=== PATIENT | female | born 1940 | race Caucasian/White ===

== ENCOUNTER 2018-02-14 11:27 | Day surgery (SDC) | payer MEDICARE, SELFPAY ==
--- NOTE | 2018-02-14 | IMM_PTH ---
PATIENT: YESENIA RICHMOND LOC: [facility] – [place] U#:[id number] AGE/SX: 77/F ROOM: RE02/14/[address]: Dr. Benito Carrillo MD : 1940 BED: DIS: 02/14/2018 SPEC #: [id number] RECD: 02/17/18 13:23 STATUS: YVAN REQ #: [id number] GOPI: 02/14/18 00:[address]: Benito Carrillo DEPT: IMMUNOHISTOCHEMISTRY RECD BY: Italia Shaver ENTERED: 02/17/18 13:24 SP TYPE: IMMUNO OTHR DR: Dr. Minerva Moore MD Tissues: B - Skin of external ear, NOS Procedures: CK5-6 (initial) CK14 (add) Vimentin (add) Pankeratin (add) P40 (add) S-100 (add) PHYSICIAN & INSTITUTION [place] [id number] SPECIMEN INFORMATION: Tissue Source: B - Additional tissue, right ear lesion, biopsy Clinical Info: Right external ear lesion, history of squamous cell carcinoma Specimen Number: [id number] CPT code: 75270, 87245 x5 METHODOLOGY: Deparaffinized sections of prefer/formalin-fixed tissue or PAP/DQ stained slides are incubated with monoclonal/polyclonal antibodies/oligonucleotide probes. Localization is made via biotin free immunoperoxidase method. Appropriate controls are performed and reacted as expected. Results on target cell population are indicated in the following table: RESULTS: ANTIBODY / CLONE RESULT Block B P40 (BC28) positive CK5-6 (D5 & 1684) positive CK14 (LL002) positive Vimentin (V9) negative S-100 (4C4.9) negative AE1-3 (AE1/AE3/PCK26) positive These tests were developed and their performance characteristics determined by [facility]. They may not have been cleared or approved by the U.S. Food and Drug Administration. The FDA has determined that such clearance or approval is not necessary. INTERPRETATION: B. Additional tissue, right ear lesion, biopsy: Fragments of invasive squamous cell carcinoma. AM:maritza 02/18/18
--- NOTE | 2018-02-14 | LES_PTH ---
PATIENT: YESENIA RICHMOND LOC: [facility] [place] U#:[id number] AGE/SX: 77/F ROOM: RE02/14/[address]: Dr. Benito Carrillo MD : 1940 BED: DIS: 02/14/2018 SPEC #: [id number] RECD: 02/14/18 13:34 STATUS: YVAN REAmilcar #: [id number] GOPI: 02/14/18 00:[address]: Benito Carrillo DEPT: SURGICAL PATHOLOGY RECD BY: Italia Shaver ENTERED: 02/14/18 14:01 SP TYPE: Lesion OTHR DR: Dr. Minerva Moore MD Tissues: Skin of external ear, NOS Procedures: Frozen Section (charge) Surgery Specimen Level IV Frozen (no charge) HEADER OPERATION: Excision of nonhealing wound of right external ear PRE-OP DIAGNOSIS: Lesion of right external ear, history of squamous cell carcinoma TISSUE SUBMITTED: A - Nonhealing wound of right external ear, B - Additional tissue nonhealing wound of right external ear FROZEN SECTION DIAGNOSIS A. Right ear lesion, biopsy: Detached fragments of atypical squamous epithelium. Focal granulation tissue. AM:maritza 02/14/18 MICROSCOPIC DIAGNOSIS A. Lesion of right external ear, biopsy: Detached fragments of atypical squamous epithelium. B. Additional tissue, nonhealing wound, right external ear, biopsy: Fragments of invasive squamous cell carcinoma. See Comment. AM:maritza 02/17/18 COMMENT B. Immunohistochemistry ([id number]) supports the above diagnosis. Invasive carcinoma is present in with associated desmoplasia and at cauterized edges of the tissue. Clinical correlation is suggested. Case has been reviewed in consultation with Dr. Salazar who concurs with the above diagnosis. IDC:SJ MICROSCOPIC DESCRIPTION Slides are reviewed. GROSS DESCRIPTION A - Received fresh for frozen section consultation/diagnosis labeled with the patient's name is a specimen designated right external ear lesion. The specimen consists of two fragments of sage-red soft tissue that in aggregate measure 0.5 x 0.2 x 0.1 cm. The entire specimen is submitted for frozen section diagnosis in one cassette. / AM:maritza 02/14/18 B - Received in fixative is one container labeled with the patient's name and designated additional tissue nonhealing wound of right external ear. The specimen consists of an irregular piece of sage soft tissue measuring 0.7 x 0.5 x 0.2 cm. The specimen bisected and submitted entirely in one cassette. / SJ:maritza 02/14/18 TC:0 CPT: 66632 x2, 20495
--- NOTE | 2018-02-14 11:43 | EKG12_ITS ---
Test Reason : PREOP Blood Pressure : / mmHG Vent. Rate : 076 BPM Atrial Rate : 076 BPM P-R Int : 142 ms QRS Dur : 084 ms QT Int : 390 ms P-R-T Axes : 037 -19 017 degrees QTc Int : 438 ms Normal sinus rhythm Normal ECG Confirmed by REGINALD PARTIDA, VANESSA ([id number]), editor magazine [employer] ([id number]) on 02/20/2018 3:25:35 PM Referred By: Benito Carrillo Confirmed By:VANESSA MONTELONGO MD
[2018-02-14 12:07] VITALS: BP 142/77; PULSE 81; RESP 16; TEMP 37.1; O2SAT 96; BMI 25.0
[2018-02-14 12:17] LABS: Anion Gap 8 (5-15); BUN 8 mg/dL (7-18); BUN/Creat Ratio 10.8 RATIO (10-20); Chloride 105 mmol/L (98-107); Creatinine, Serum 0.74 mg/dL (0.55-1.02); EST Glomerular Filtration Rate 81 mL/min (>60); Est Glom Filt Rate - Afr Amer 98 mL/min (>60); Estimated Creatinine Clearance 43.07 ml/min; Glucose 105 mg/dL (74-106); Potassium 3.7 mmol/L (3.5-5.1); Sodium Level 141 mmol/L (136-145)
[2018-02-14] MEDS: Bacitracin 500 UNITS/GM PACKET (14:02)
--- NOTE | 2018-02-14 14:02 | PCM.OPRPT ---
Problem List (1) Lesion of ear canal Status: Acute (2) History of malignant neoplasm of skin Status: Chronic Report of Operation Date of Procedure: 02/14/18 Pre-Operative Diagnosis: Non-healing lesion of right ear with history of previously excised squamous cell carconoma in this area Post-Operative Diagnosis: Same Surgery/Procedure Performed:: Excision of non-healing lesion of right ear 0.8 x 1 cm with advancement flap closure Type of Anesthesia:: General Anesthesiologist: Zac Mojica Special Medications: none Specimen's removed: lesion right ear Drains: none Estimated Blood Loss (mL): 0 mL Fluids Replaced: 800 mL Grafts/Implants Used: none - Complications none - Admit VTE Documentation VTE Present on Admission: No VTE Mechan Device Prophylaxis: SCD's VTE Pharm Prophylaxis ordered?: No
--- NOTE | 2018-02-14 14:07 | DCINST_ITS ---
- Discharge Diagnoses Current Active Problems: Current Active and Chronic Problems Lesion of ear canal (Acute) History of malignant neoplasm of skin (Chronic) You will use the following diet at home:: Regular Discharge Activity: Return to Normal Activity Call your doctor if your incision/area has: Continuous Slow Oozing, Foul Smelling Discharge, Swelling at the incision site Call your doctor if you observe: Fever of 101 or Higher, Uncontrolled pain Cleanse incision/area with: Do not get Incision Wet Allergies/Adverse Reactions: Allergies No Known Allergies Allergy (Verified 02/11/18 09:56) Medications to take at Discharge Acetaminophen [Tylenol Extra Strength] 500 - 1,000 mg PO Q6H PRN PRN 02/11/18 Atorvastatin Calcium [Lipitor] 40 mg PO QHS 02/11/18 Gabapentin [Neurontin] 300 mg PO DAILY 02/11/18 Gabapentin [Neurontin] 600 mg PO QHS 02/11/18 Nabumetone [Relafen] 750 mg PO BID 02/11/18 RX: Baclofen 10 - 20 mg PO QHS 02/11/18 RX: Metformin HCl 500 mg PO BID 02/11/18 RX: Omeprazole 40 mg PO BID 02/11/18 Primary Care Physician: Minerva Moore [Primary Care Provider] - Test Results: Test results from this visit will be discussed in further detail at your follow- up appointment, if applicable. Please Follow Up With: Benito Carrillo MD When: 1 week
[2018-02-14 14:10] VITALS: BP 142/77; BP 162/77; PULSE 89; RESP 16; TEMP 36.3; O2SAT 95
[2018-02-14 14:15] VITALS: BP 142/77; BP 158/65; PULSE 78; RESP 16; O2SAT 94
[2018-02-14 14:20] VITALS: BP 142/77; BP 148/71; PULSE 75; RESP 16; O2SAT 95
[2018-02-14 14:30] VITALS: BP 142/77; BP 149/72; PULSE 79; RESP 16; O2SAT 96
[2018-02-14 15:44] VITALS: BP 142/77
--- OUTSIDE RECORDS SUMMARY | 2018-04-11 10:17 | XMS RPT_ITS | Summary of Care ---
:1940 Author Organization [facility] Address [address] [place] [address] Care Team Providers Name Role Phone Loy Paez DO Primary Care Provider Loy Paez DO Unavailable Encounter Details Date Type Department Care Team Description 08/17/2017 Hospital Encounter [facility], [place], [place] [address] [address] [place] [address] Allergies No Known Allergiesas of this encounter Medications Prescription Sig. Disp. Refills Start Date End Date Status atorvastatin (LIPITOR) 40 Take 40 mg by mouth 01/10/2017 Active MG tablet daily. baclofen (LIORESAL) 10 MG Take 10 mg by mouth 01/10/2017 Active tablet every evening. gabapentin (NEURONTIN) Take 300 mg by 01/10/2017 Active 300 MG capsule mouth 2 (two) times a day. ibuprofen (ADVIL,MOTRIN) Take 200 mg by Active 200 MG tablet mouth every 6 (six) hours as needed. metFORMIN (GLUCOPHAGE) Take 500 mg by 01/02/2017 Active 500 MG tablet mouth 2 (two) times a day With morning and evening meals . nabumetone (RELAFEN) 750 Take 750 mg by 02/20/2017 Active MG tablet mouth 2 (two) times a day. omeprazole (PRILOSEC) 40 Take 40 mg by mouth 01/10/2017 Active MG capsule daily Before a meal . acetaminophen (TYLENOL Take by mouth 2 Active EXTRA STRENGTH) 500 MG tablets every 4-6 tablet hours as needed, not to exceed 8 tablets per 24 hours . 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 Hormone replacement therapy 02/20/2016 Type 2 diabetes mellitus without complication, without long-term current 02/20/2016 use of insulin (HCC) Insomnia 02/20/2016 HUSSAIN (Generalized Anxiety Disorder) 02/20/2016 Primary osteoarthritis involving multiple joints 02/20/2016 Mixed hyperlipidemia 02/20/2016 Immunizations Name Dates Previously Given Next Due Influenza TIV (IM) 01/21/2017 as of this encounter Social History Tobacco Use Types Packs/Day Years Used Date Never Smoker Alcohol Use Drinks/Week oz/Week Comments No Sex Assigned at Date Recorded Not on file as of this encounter Plan of Treatment Upcoming Encounters Date Type Specialty Care Team Description 02/03/2018 Office Visit Dentistry Health Maintenance Due Date Last Done Comments COLONOSCOPY 1940 DEXA SCAN 1940 TETANUS EVERY 10 YR 1940 FOOT EXAM 08/19/1951 OPHTHALMOLOGY EXAM 08/19/1951 ZOSTER VACCINE 2001 PNEUMOCOCCAL VACCINE AGE 65+ (1 of 2 2006 - PCV13) HEMOGLOBIN A1C 07/02/2017 01/01/2017, 11/17/2015, 04/18/2013 URINE MICROALBUMIN 01/01/2018 01/01/2017 SEQUENTIAL INFLUENZA VACCINE Completed 01/21/2017 as of this encounter
--- OUTSIDE RECORDS SUMMARY | 2018-04-11 10:17 | XMS RPT_ITS ---
:1940 Author Organization [facility] Care Team Providers Name Role Phone Queta, Dr. Rafael Fairbanks Admitting Unavailable [place], Dr. Rafael Fairbanks Attending Unavailable [place], Dr. Rafael Fairbanks Admitting Unavailable [place], Dr. Rafael Fairbanks Attending Unavailable Mario, Dr. Jose Will Admitting Unavailable Mario, Dr. Jose Will Attending Unavailable Radha Carolina Admitting Unavailable Radha Carolina Attending Unavailable CarrilloBenito Attending Unavailable Carrillo, Benito Referring Unavailable YOVANANGKENYON, SHELLYJETH Primary Care Unavailable Benito Carrillo Attending Unavailable Carrillo, Benito Referring Unavailable KATELYNN, VIDARA Primary Care Unavailable Pete Montelongo Attending Unavailable Benito Carrillo Referring Unavailable PROBLEMS PROBLEMS DATE TYPE CONDITION / CODE ATTENDING STATUS SOURCE 02/28/2018 Unknown Z01.810 - Encounter Pete Montelongo Active [place] for preprocedural [facility] examination / Repository Z01.810(ICD-10) PROCEDURES PROCEDURES No Procedure Records FoundRESULTS RESULTS BEDSIDE GLUCOSE Collected: 02/21/2018 Status: F Source[facility] [place] [facility] TYPE CODE TESTS RESULT OUT OF REFERENCE UNITS RANGE LAB L501.080 70-110 mg/dL High BEDSIDE GLU 148 Result Comment: MANAGEMENT OF PATIENT CARE PER NURSING PROTOCOL Performed By: #### L501.080 #### [facility] Point of Care [address] [place] [address] OPERATIVE REPORT Observed: 02/21/2018 Status: F Source: [place] 12:35 PM [facility] REPOSITORY [facility] Medical Records Department [address] [place] [address] Operative Report 02/21/18 1226 MR#: [id number] Acct: [id number] Name: YESENIA RICHMOND Rep #: [id number] : 1940 77 From: Benito Carrillo MD PCP: IMNERVA MOORE Status: REG 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 This had felt to be benign on frozen section intraoperatively however on her final pathology after immunohistochemical staining was shown to be a squamous cell carcinoma and return to surgery for wide excision was advised. The risks, alternatives, potential benefits, and complications were discussed at length and any questions answered to the patient and/or caregiver's satisfaction. Witnessed informed consent was obtained in the office, and the patient and/or caregiver was agreeable to proceed. Procedure went as follows: The patient was identified in the preoperative holding brought to the operating room where she was placed under general anesthesia. Difficulty in visualizing the airway was encountered and during instrumentation a small puncture wound of the right upper lip had been created due to catching the upper lip on the canine tooth on that side. This was cleaned and hemostasis achieved with firm pressure. Given the location within the vermilion this wound was then closed with an interrupted 4-0 chromic suture for closure with the intraoral portion left open to allow for drainage. The patient was given a gram of Ancef for prophylaxis against infection. Attention was then turned to the right ear where a 2 x 2 centimeter circumferential marking was made including the area of previous resection of her recurrent squamous cell carcinoma. This included the insertion of the helical rim the apex of the pinna and the skin of the taoist in this area. This was then incised with a 15 blade scalpel through the skin and subcutaneous tissue and dissection was continued down to the fascia of the temporalis muscle. This was then widely resected including the cartilaginous portions of the pinna and was sent for pathologic evaluation. A 4 cm descending incision was then made into the tragus and wide undermining was carried out to allow for rotation and advancement of the facial skin to fill the defect created by the resection. This was then secured deeply with interrupted 3-0 Vicryl sutures. A portion of the cartilage of the auricle was then excised to allow for recreation of the helical rim which was then rotated and inserted into the incision line of the reconstruction which resulted in a smaller overall external ear but recreation of the natural curvature of the superior portion. A small dogear at the inferior portion of the tragus where the facial skin was advanced was additionally excised trephine the incisional line and after finishing closure with the deep Vicryl sutures 5-0 Monocryl suture was then placed to close the skin edge. Bacitracin ointment was then applied and the patient returned to anesthesia where she was revived and extubated without complication having tolerated the procedure well. Type of Anesthesia:: General Anesthesiologist: Benito Araujo Special Medications: Ancef 1 gm Specimen's removed: SCCA right ear Drains: none Estimated Blood Loss (mL): 10 mL Fluids Replaced: 1000 mL Grafts/Implants Used: none - Complications injury to left upper lip during intubation - Admit VTE Documentation VTE Present on Admission: No VTE Mechan Device Prophylaxis: SCD's VTE Pharm Prophylaxis ordered?: No 02/21/18 1235 <Electronically signed by Benito Carrillo MD> Date Benito Carrillo MD CC: Benito Carrillo MD; MINERVA MOORE Signed BEDSIDE GLUCOSE Collected: 02/21/2018 Status: F Source: [place] 10:00 AM [facility] REPOSITORY TYPE CODE TESTS RESULT OUT OF RANGE REFERENCE UNITS LAB L501.080 70-110 mg/dL Normal BEDSIDE GLU 108 Result Comment: MANAGEMENT OF PATIENT CARE PER NURSING PROTOCOL Performed By: #### L501.080 #### [facility] Point of Care [address] [place] [address] LESION (CHOOSE SITE) Observed: 02/21/2018 Status: F Source: [place] 12:00 AM [facility] REPOSITORY Patient: YESENIA RICHMOND : 1940 (77/F) Acct Num: [id number] Phys: Benito Carrillo MD Unit Num: [id number] Loc: [facility] Specimen: [id number] Received: 02/21/181331 Spec Type: Lesion TISSUES 1 TISSUES: Skin of external ear, NOS COMMENT The focus of basal cell carcinoma measures 0.5 x 0.1 cm. (measured microscopically). Smaller piece of tissue is negative for carcinoma. Both pieces of tissue show cartilage. Cartilage is not involved by the tumor. Clinical correlation and appropriate follow up are necessary. Please make reference to previous specimen ([id number]) lesion of right external ear, biopsy with diagnosis of detached fragments of atypical squamous epithelium and additional tissue, nonhealing wound, right external ear, biopsy with diagnosis of fragments of invasive squamous cell carcinoma. Case has been reviewed in consultation with Dr. Oneill who concurs with the above diagnosis. IDC:AM GROSS DESCRIPTION Received is one container labeled with the patient's name and not further designated. The specimen consists of two fragments. The larger fragment contains skin, cartilage and soft tissue. This fragment is somewhat discoid measuring 2.4 x 2.3 cm and a depth of excision measuring 0.8 cm in greatest thickness. The specimen is differentially inked as follows: anterior - black, posterior - blue, superior - red and inferior - green. This piece is serially sectioned. Also present in the container is an irregular fragment of pink-red tissue resembling possibly cartilage measuring 2.5 cm in length and 0.2 cm in average diameter. This fragment is inked in green ink and bisected. The entire specimen is submitted in two cassettes. / AM:maritza 02/21/18 TC:0 CPT: 32051 HEADER OPERATION: Excision, squamous cell carcinoma, ear PRE-OP DIAGNOSIS: Squamous cell carcinoma of skin TISSUE SUBMITTED: Right ear excision, recurrent squamous cell carcinoma right pinna, long suture - anterior, short suture - superior MICROSCOPIC DESCRIPTION Slides are reviewed. MICROSCOPIC DIAGNOSIS Right ear lesion, excisional biopsy: Focal area of ulceration consistent with previous biopsy site. Negative for squamous cell carcinoma. Focal basal cell carcinoma extending up to the inferior margin of the specimen. See comment. SJ:maritza 02/24/18 Signed Darrell Salazar 02/24/18 <signature on file> Performed By: #### PLES #### [facility] [address] [place], [address] 12 LEAD ELECTROCARDIOGRAM Observed: 02/20/2018 Status: F Source: [place] 3:25 PM [facility] REPOSITORY [facility] Cardiovascular Services [address] [place] [address] 12 Lead EKG 02/14/18 1150 MR#: [id number] Acct: [id number] Name: YESENIA RICHMOND Rep #: [id number] : 1940 77 From: Pete Montelongo MD Attending Dr: Benito Carrillo MD Status: [facility] Ordering Dr: Benito Carrillo MD Date: 02/14/18 Location: [facility] Sex: F C Admitted: Test Reason : PREOP Blood Pressure : / mmHG Vent. Rate : 076 BPM Atrial Rate : 076 BPM P-R Int : 142 ms QRS Dur : 084 ms QT Int : 390 ms P-R-T Axes : 037 -19 017 degrees QTc Int : 438 ms Normal sinus rhythm Normal ECG Confirmed by REGINALD PARTIDA, PETE ([id number]), fashion editor GT SAN ([id number]) on 02/20/2018 3:25:35 PM Referred By: Benito Carrillo Confirmed By:PETE MONTELONGO MD 02/20/18 1525 Date Pete Montelongo MD CC: Benito Carrillo MD; MINERVA MOORE Signed OPERATIVE REPORT Observed: 02/14/2018 Status: F Source: [place] 2:11 PM [facility] REPOSITORY [facility] Medical Records Department [address] [place] [address] Operative Report 02/14/18 1402 MR#: [id number] Acct: [id number] Name: YESENIA RICHMOND Rep #: [id number] : 1940 77 From: Benito Carrillo MD PCP: MINERVA MOORE Status: REG [facility] Y Location: [place] [address] ADDENDUM by Benito Carrillo MD on 02/14/18 at 1411 Code Visit Yesenia is a 77-year-old female with a history of squamous cell carcinoma of the right ear. This is been treated with resection and skin graft and had been without obvious recurrence for several years but developed a nonhealing wound along the superior margin of the skin graft. Observation showed progression and swelling over the helical rim and concern for recurrence of her squamous cell carcinoma was raised with excision for evaluation and wound closure advised. The risks, alternatives, potential benefits, and complications were discussed at length and any questions answered to the patient and/or caregiver's satisfaction. Witnessed informed consent was obtained in the office, and the patient and/or caregiver was agreeable to proceed. Procedure went as follows: The patient was identified in the preoperative holding and brought to the operating room where she was placed under monitored anesthesia care. When appropriate anesthesia is obtained, the right ear was prepped and draped in usual sterile fashion. Using 1% lidocaine with 100,000 epinephrine a total of 2 cc were then injected around the helical rim and the visible lesion in the scaphoid. Examination showed interval resolution of the fullness at the helical rim but a nonhealing ulceration with a base of granulation tissue underneath scabbing at the superior aspect of the skin graft. This was then resected with a 15 blade scalpel and the granulation tissue was scraped from the underlying cartilage and sent for pathologic evaluation. This showed atypical squamous epithelium and granulation tissue without calixto carcinoma. Given this the area was then broadly excised for a total of 0.8 x 1.0 cm in size removing the underlying cartilage. A relaxing incision was then made over the skin of the tragus 1 cm in length and this was then rotated into fill the defect which was secured with a single interrupted 3-0 Vicryl suture. 4-0 Prolene sutures were then placed to close the skin edge and bacitracin ointment applied. The patient was then returned to anesthesia she was revived without complication having tolerated the procedure well. 02/14/18 1411 <Electronically signed by Benito Carrillo MD> Date Benito Carrillo MD cc: Benito Carrillo MD; MINERVA MOORE * Signed Problem List (1) Lesion of ear canal Status: Acute (2) History of malignant neoplasm of skin Status: Chronic Report of Operation Date of Procedure: 02/14/18 Pre-Operative Diagnosis: Non-healing lesion of right ear with history of previously excised squamous cell carconoma in this area Post-Operative Diagnosis: Same Surgery/Procedure Performed:: Excision of non-healing lesion of right ear 0.8 x 1 cm with advancement flap closure Type of Anesthesia:: General Anesthesiologist: Zac Mojica Special Medications: none Specimen's removed: lesion right ear Drains: none Estimated Blood Loss (mL): 0 mL Fluids Replaced: 800 mL Grafts/Implants Used: none - Complications none - Admit VTE Documentation VTE Present on Admission: No VTE Mechan Device Prophylaxis: SCD's VTE Pharm Prophylaxis ordered?: No 02/14/18 1406 <Electronically signed by Benito Carrillo MD> Date Benito Carrillo MD CC: Benito Carrillo MD; MINERVA MOORE Signed DISCHARGE INSTRUCTION Observed: 02/14/2018 Status: F Source: [place] 2:07 PM [facility] REPOSITORY [facility] Medical Records Department [address] [place] [address] Instructions for Home/Discharge Instructions 02/14/18 1406 MR#: [id number] Acct: [id number] Name: YESENIA RICHMOND Rep #: [id number] : 1940 77 From: Benito Carrillo MD PCP: MINERVA MOORE Status: REG SD - Discharge Diagnoses Current Active Problems: Current Active and Chronic Problems Lesion of ear canal (Acute) History of malignant neoplasm of skin (Chronic) You will use the following diet at home:: Regular Discharge Activity: Return to Normal Activity Call your doctor if your incision/area has: Continuous Slow Oozing, Foul Smelling Discharge, Swelling at the incision site Call your doctor if you observe: Fever of 101 or Higher, Uncontrolled pain Cleanse incision/area with: Do not get Incision Wet Allergies/Adverse Reactions: Allergies No Known Allergies Allergy (Verified 02/11/18 09:56) Medications to take at Discharge Acetaminophen [Tylenol Extra Strength] 500 - 1,000 mg PO Q6H PRN PRN 02/11/18 Atorvastatin Calcium [Lipitor] 40 mg PO QHS 02/11/18 Gabapentin [Neurontin] 300 mg PO DAILY 02/11/18 Gabapentin [Neurontin] 600 mg PO QHS 02/11/18 Nabumetone [Relafen] 750 mg PO BID 02/11/18 RX: Baclofen 10 - 20 mg PO QHS 02/11/18 RX: Metformin HCl 500 mg PO BID 02/11/18 RX: Omeprazole 40 mg PO BID 02/11/18 Primary Care Physician: Minerva Moore [Primary Care Provider] - Test Results: Test results from this visit will be discussed in further detail at your follow-up appointment, if applicable. Please Follow Up With: Benito Carrillo MD When: 1 week 02/14/18 1407 <Electronically signed by Benito Carrillo MD> Date Benito Carrillo MD CC: MINERVA MOORE BASIC METABOLIC Collected: 02/14/2018 Status: F Source: [place] PROFILE (BMP) 11:55 AM [facility] REPOSITORY TYPE CODE TESTS RESULT OUT OF RANGE REFERENCE UNITS LAB L501.0100 74-106 mg/dL Normal GLU 105 Result Comment: Fasting Glucose result from 100 to 125 mg/dL suggests IMPAIRED HOMEOSTASIS per A.D.A. criteria. Please note revised GLUCOSE reference range effective 2017. LAB L501.1000 7-18 mg/dL Normal BUN 8 LAB L501.1100 0.55-1.02 mg/dL Normal CREAT,SERUM 0.74 Result Comment: The validity of the calculated GFR AND GFRAA in patients over 70 years has not been determined. Clinical correlation is essential. LAB L501.1110 >60 mL/min Normal EST GFR 81 Result Comment: Non- GFR Calc LAB L501.1115 >60 mL/min Normal EST GFR - AA 98 Result Comment: GFR Calc LAB L501.1255 ml/min Normal Estimated CRCL 43.07 LAB L501.1300 10-20 RATIO Normal BUN/CRE 10.8 LAB L501.2200 8.5-10 mg/dL Normal .1 CA 9.0 LAB L501.5300 136-14 mmol/L Normal 5 NA 141 LAB L501.5600 3.5-5. mmol/L Normal 1 K 3.7 LAB L501.5900 98-107 mmol/L Normal CL 105 LAB L501.6100 21.0-3 mmol/L Normal 2.0 CO2 28.0 LAB L501.6200 5-15 Normal GAP 8 Performed By: #### L500.2500 #### [facility] [address] [place], [address] LESION (CHOOSE SITE) Observed: 02/14/2018 Status: F Source: [place] 12:00 AM [facility] REPOSITORY Patient: YESENIA RICHMOND : 1940 (77/F) Acct Num: [id number] Phys: Benito Carrillo MD Unit Num: [id number] Loc: [facility] Specimen: [id number] Received: 02/14/181333 Spec Type: Lesion TISSUES 1 TISSUES: Skin of external ear, NOS COMMENT B. Immunohistochemistry ([id number]) supports the above diagnosis. Invasive carcinoma is present in with associated desmoplasia and at cauterized edges of the tissue. Clinical correlation is suggested. Case has been reviewed in consultation with Dr. Salazar who concurs with the above diagnosis. IDC:BRANDIE FROZEN SECTION DIAGNOSIS A. Right ear lesion, biopsy: Detached fragments of atypical squamous epithelium. Focal granulation tissue. AM: 02/14/18 GROSS DESCRIPTION A - Received fresh for frozen section consultation/diagnosis labeled with the patient's name is a specimen designated right external ear lesion. The specimen consists of two fragments of sage-red soft tissue that in aggregate measure 0.5 x 0.2 x 0.1 cm. The entire specimen is submitted for frozen section diagnosis in one cassette. / AM: 02/14/18 B - Received in fixative is one container labeled with the patient's name and designated additional tissue nonhealing wound of right external ear. The specimen consists of an irregular piece of sage soft tissue measuring 0.7 x 0.5 x 0.2 cm. The specimen bisected and submitted entirely in one cassette. / :maritza 02/14/18 TC:0 CPT: 26430 x2, 16665 HEADER OPERATION: Excision of nonhealing wound of right external ear PRE-OP DIAGNOSIS: Lesion of right external ear, history of squamous cell carcinoma TISSUE SUBMITTED: A - Nonhealing wound of right external ear, B - Additional tissue nonhealing wound of right external ear MICROSCOPIC DESCRIPTION Slides are reviewed. MICROSCOPIC DIAGNOSIS A. Lesion of right external ear, biopsy: Detached fragments of atypical squamous epithelium. B. Additional tissue, nonhealing wound, right external ear, biopsy: Fragments of invasive squamous cell carcinoma. See Comment. AM:maritza 02/17/18 Signed Zackary [facility] 02/18/18 <signature on file> Performed By: #### PLES #### [facility] [address] [place], [address] IMMUNOHISTOCHEMISTRY Observed: 02/14/2018 Status: F Source: [place] 12:00 [facility] REPOSITORY Patient: YESENIA RICHMOND : 1940 (77/F) Acct Num: [id number] Phys: Benito Carrillo MD Unit Num: [id number] Loc: [facility] Specimen: [id number] Received: 02/17/181322 Spec Type: IMMUNO TISSUES 1 TISSUES: B. Skin of external ear, NOS SPECIMEN INFORMATION: Tissue Source: B - Additional tissue, right ear lesion, biopsy Clinical Info: Right external ear lesion, history of squamous cell carcinoma Specimen Number: [id number] CPT code: 59083, 51897 x5 METHODOLOGY: Deparaffinized sections of prefer/formalin-fixed tissue or PAP/DQ stained slides are incubated with monoclonal/polyclonal antibodies/oligonucleotide probes. Localization is made via biotin free immunoperoxidase method. Appropriate controls are performed and reacted as expected. Results on target cell population are indicated in the following table: RESULTS: ANTIBODY / CLONE RESULT Block B P40 (BC28) positive CK5-6 (D5 AND 1684) positive CK14 (LL002) positive Vimentin (V9) negative S-100 (4C4.9) negative AE1-3 (AE1/AE3/PCK26) positive These tests were developed and their performance characteristics determined by [facility]. They may not have been cleared or approved by the U.S. Food and Drug Administration. The FDA has determined that such clearance or approval is not necessary. INTERPRETATION: B. Additional tissue, right ear lesion, biopsy: Fragments of invasive squamous cell carcinoma. AM:maritza 02/18/18 PHYSICIAN AND INSTITUTION [address] [address] Signed Zackary [facility] 02/18/18 <signature on file> Performed By: #### PIMM #### [facility] [address] [place] [address], [id number] CHEST PA AND LATERAL Observed: 08/17/2017 Status: F Source: [facility] 1:13 PM [facility] REPOSITORY Final Report Accession No: [id number] Performed: Aug 17 2017 1:13PM Examination: CHEST PA AND LATERAL EXAMINATION: PA and lateral chest radiograph. CLINICAL INFORMATION: Cough. COMPARISON: 04/23/2016. FINDINGS: The heart size is within normal limits. The lungs demonstrate no infiltrate, pleural effusion, or pneumothorax. There is no acute bony abnormality. IMPRESSION: No acute cardiopulmonary process. Interpreting Physician: HELEN MELENDREZ M.D. Trans: bjones : cc: GLUCOSE, POC Collected: 07/31/2017 Status: F Source: [facility] 8:59 AM [facility] REPOSITORY TYPE CODE TESTS RESULT OUT OF RANGE REFERENCE UNITS LAB GLUX 80-115 mg/dL Normal Glucose, 106 POC Performed By: #### GLUX #### Unless otherwise noted, all testing performed by [facility] [address] [place], [place] [address] CLIA: [id number] Supervisor Cd Area: Karel Worley M.D. SURG Observed: 07/31/2017 Status: F Source: [facility] 12:00 AM [facility] REPOSITORY Patient Name: YESENIA RICHMOND Source Esophagus, biopsy, Distal Clinical History Esophagitis and hiatal hernia Diagnosis Ulcerated esophageal squamous and gastric mucosa with acute and chronic inflammation. Hays's specialized mucosa is not identified. Negative for dysplasia. JF;lat Gross Description Received in formalin are multiple sage fragments measuring in aggregate 0.7 x 0.3 x 0.2 cm. ET 1 block. LM/arj (JSF/arj) Electronically Signed By Karel Worley MD , Pathologist (Case signed 08/01/2017) ALLERGIES ALLERGIES DATE TYPE / CODE NAME / CODE REACTION SEVERITY SOURCE 02/11/2018 Drug No Known Unknown [facility] Allergy/4160 Allergies/F00 [facility] [address](SNOMED 7840022(RXNOR Repository CT) M) ENCOUNTERS ENCOUNTERS ADMIT/DISCHARGE ACCOUNT NUMBER ADMITTING ENCOUNTER LOCATION SOURCE CLASS 02/21/2018/02/22/20 [id number] Ambulatory [address] ding:SDCRoom Repository : AC19 02/14/2018/02/15/20 [id number] Ambulatory [address] ding:SDCRoom Repository : AC19 02/14/2018 [id number] Ambulatory BMSBuilding: [place] [facility] Repository 08/17/2017 [id number] [facility] Repository 07/31/2017/08/01/[id number] Mario [facility] [address] K lding:[facility] CenterRoom: Hospitals [facility] Repository SURCBed: [place] [address] 07/11/[id number] Queta [facility] Repository 04/12/[id number] Queta [facility] Repository PAYERS PAYERS ENCOUNTER GUARANTOR PAYER SUBSCRIBER SOURCE 02/21/2018 YESENIA Bri Primary YESENIA Gregory [place] [id number] MOCK Insurance:HUMANA PARKERDOB: [place] PPOPolicy [id number] Hospital [address]Svx: (419) Number: Repository [phone] () [id number] Date:[id number] [id number]: 02/21/2018 Secondary NOT GIVENUNK [place] Insurance:SELF PAY [facility] Number: Effective Repository Date:2018-02-20 02/14/2018 YESENIA Gregory Primary YESENIA Pike [id number] [place] Insurance:HUMANA PARKERDOB: [place] PPOPolicy [id number] [address]Myv: [phone]) Number: Repository [phone] () [id number] Date:[id number] [address]VM: 02/14/2018 Secondary NOT GIVENUNK [place] Insurance:SELF PAY [facility] Number: Effective Repository Date:2018-01-28 02/14/2018 YESENIA Gregory Primary YESENIA Pike [id number] [place] Insurance:HUMANA PARKERDOB: [place] PPOPolicy [id number] [address]Gfx: [phone]) Number: Repository [phone] () [id number] Date:[id number] [address] [address]BA: 02/14/2018 Secondary NOT GIVENUNK [place] Insurance:SELF PAY [facility]: Effective Repository Date:2018-02-14 08/17/2017 Primary YESENIA F [facility] Insurance:Humana PARKERDOB: [place] [facility] Number: [id number] [facility] [id number] [address] Repository Date:0400-11-88Duve [place], [place] Name:Health [id number]: () 08/17/2017 Secondary YESENIA F [facility] Insurance:Carla PARKERDOB: Neli donte [facility] Number: [id number] [facility] [id number] MOCK Repository ective Date: - [place], [place] [id number] [id number]: [phone]) Name:[place] [address] [phone] () [place], [place] [address]IG: 07/31/2017 Primary YESENIA F [facility] Insurance:Humana [facility]ILIODOB[facility] Number: [id number] [facility] [id number] MOCK Repository Date:2598-12-26Jwyv [place], [place] Name:Health [id number]: () 07/31/2017 Secondary YESENIA F [facility] Insurance:Carla PARKERDOB: [facility] Number: [id number] [facility] [id number] MOCK Repository ective Date: - [place], [place] [id number] [address]Gqv: [phone] Name:[place] [address] [phone] () [place], [place] [address]LL:
== END 2018-02-14 15:50 | disposition home or self-care (01) ==
LOC: SDC 11:29 → AC 11:30
PROVIDERS: Family Provider Internal Medicine; PCP Internal Medicine; Referring Provider Otolaryngology; Visit Provider Otolaryngology
PROC: (CPT 14060; principal; 2018-02-14 13:00)
DX: C44.222 Squamous cell carcinoma of skin of right ear and external auricular canal (principal); E11.9 Type 2 diabetes mellitus without complications; E78.00 Pure hypercholesterolemia, unspecified; M19.90 Unspecified osteoarthritis, unspecified site; K21.9 Gastro-esophageal reflux disease without esophagitis; Z79.84 Long term (current) use of oral hypoglycemic drugs; Z79.899 Other long term (current) drug therapy; Z78.0 Asymptomatic menopausal state; Z85.828 Personal history of other malignant neoplasm of skin
CPT/HCPCS: 14060; 36415; 80048; 88305; 88331; 88341; 88342; 93005; J7120

== ENCOUNTER 2018-02-21 09:26 | Day surgery (SDC) | payer MEDICARE, SELFPAY ==
[2018-02-21] VITALS (7 sets, daily range): BP systolic 175–187; BP diastolic 63–81; PULSE 73–95; RESP 16; TEMP 36.1–36.4; O2SAT 94–97; BMI 24.9
--- NOTE | 2018-02-21 | LES_PTH ---
PATIENT: YESENIA RICHMOND [place] [facility] [place][id number] AGE/SX: 77/F ROOM: RE02/21/[address]: Dr. Benito Carrillo MD : 1940 BED: DIS: 02/21/2018 SPEC #: [id number] RECD: 02/21/18 13:32 STATUS: YVAN LENNIE #: [id number] GOPI: 02/21/18 00:[address]: Benito Carrillo DEPT: SURGICAL PATHOLOGY RECD BY: Shahzad Vega ENTERED: 02/21/18 13:32 SP TYPE: Lesion OTHR DR: Dr. Minerva Moore MD Tissues: Skin of external ear, NOS Procedures: Surgery Specimen Level IV HEADER OPERATION: Excision, squamous cell carcinoma, ear PRE-OP DIAGNOSIS: Squamous cell carcinoma of skin TISSUE SUBMITTED: Right ear excision, recurrent squamous cell carcinoma right pinna, long suture - anterior, short suture - superior MICROSCOPIC DIAGNOSIS Right ear lesion, excisional biopsy: Focal area of ulceration consistent with previous biopsy site. Negative for squamous cell carcinoma. Focal basal cell carcinoma extending up to the inferior margin of the specimen. See comment. SJ:maritza 02/24/18 COMMENT The focus of basal cell carcinoma measures 0.5 x 0.1 cm. (measured microscopically). Smaller piece of tissue is negative for carcinoma. Both pieces of tissue show cartilage. Cartilage is not involved by the tumor. Clinical correlation and appropriate follow up are necessary. Please make reference to previous specimen ([id number]) lesion of right external ear, biopsy with diagnosis of detached fragments of atypical squamous epithelium and additional tissue, nonhealing wound, right external ear, biopsy with diagnosis of fragments of invasive squamous cell carcinoma. Case has been reviewed in consultation with Dr. Oneill who concurs with the above diagnosis. IDC:AM MICROSCOPIC DESCRIPTION Slides are reviewed. GROSS DESCRIPTION Received is one container labeled with the patient's name and not further designated. The specimen consists of two fragments. The larger fragment contains skin, cartilage and soft tissue. This fragment is somewhat discoid measuring 2.4 x 2.3 cm and a depth of excision measuring 0.8 cm in greatest thickness. The specimen is differentially inked as follows: anterior - black, posterior - blue, superior - red and inferior - green. This piece is serially sectioned. Also present in the container is an irregular fragment of pink-red tissue resembling possibly cartilage measuring 2.5 cm in length and 0.2 cm in average diameter. This fragment is inked in green ink and bisected. The entire specimen is submitted in two cassettes. / AM:maritza 02/21/18 TC:0 CPT: 24654
[2018-02-21 10:11] LABS: Bedside Glucose 108 mg/dL (70-110)
--- NOTE | 2018-02-21 12:34 | OP.PCM_ITS ---
Problem List (1) Squamous cell carcinoma of right ear Status: Acute (2) Laceration of lip without complication Status: Acute Report of Operation Date of Procedure: 02/21/18 Pre-Operative Diagnosis: Squamous cell carcinoma right ear, lip laceration upper lip Post-Operative Diagnosis: same Surgery/Procedure Performed:: Wide excision of SCCA of right ear 2x2 cm with complex wound closure and reconstruction with advancement rotation flap, repair of upper lip laceration Description of Surgical Findings:: Leann is a 77-year-old female who presents for follow-up evaluation after resection of a nonhealing lesion of the right ear. This had felt to be benign on frozen section intraoperatively however on her final pathology after immunohistochemical staining was shown to be a squamous cell carcinoma and return to surgery for wide excision was advised. The risks, alternatives, potential benefits, and complications were discussed at length and any questions answered to the patient and/or caregiver's satisfaction. Witnessed informed consent was obtained in the office, and the patient and/or caregiver was agreeable to proceed. Procedure went as follows: The patient was identified in the preoperative holding brought to the operating room where she was placed under general anesthesia. Difficulty in visualizing the airway was encountered and during instrumentation a small puncture wound of the right upper lip had been created due to catching the upper lip on the canine tooth on that side. This was cleaned and hemostasis achieved with firm pressure. Given the location within the vermilion this wound was then closed with an interrupted 4-0 chromic suture for closure with the intraoral portion left open to allow for drainage. The patient was given a gram of Ancef for prophylaxis against infection. Attention was then turned to the right ear where a 2 x 2 centimeter circumferential marking was made including the area of previous resection of her recurrent squamous cell carcinoma. This included the insertion of the helical rim the apex of the pinna and the skin of the buddhist in this area. This was then incised with a 15 blade scalpel through the skin and subcutaneous tissue and dissection was continued down to the fascia of the temporalis muscle. This was then widely resected including the cartilaginous portions of the pinna and was sent for pathologic evaluation. A 4 cm descending incision was then made into the tragus and wide undermining was carried out to allow for rotation and advancement of the facial skin to fill the defect created by the resection. This was then secured deeply with interrupted 3-0 Vicryl sutures. A portion of the cartilage of the auricle was then excised to allow for recreation of the helical rim which was then rotated and inserted into the incision line of the reconstruction which resulted in a smaller overall external ear but recreation of the natural curvature of the superior portion. A small dogear at the inferior portion of the tragus where the facial skin was advanced was additionally excised trephine the incisional line and after finishing closure with the deep Vicryl sutures 5-0 Monocryl suture was then placed to close the skin edge. Bacitracin ointment was then applied and the patient returned to anesthesia where she was revived and extubated without complication having tolerated the procedure well. Type of Anesthesia:: General Anesthesiologist: Benito Araujo Special Medications: Ancef 1 gm Specimen's removed: SCCA right ear Drains: none Estimated Blood Loss (mL): 10 mL Fluids Replaced: 1000 mL Grafts/Implants Used: none - Complications injury to left upper lip during intubation - Admit VTE Documentation VTE Present on Admission: No VTE Mechan Device Prophylaxis: SCD's VTE Pharm Prophylaxis ordered?: No
--- NOTE | 2018-02-21 12:36 | DCINST_ITS ---
- Discharge Diagnoses Current Active Problems: Current Active and Chronic Problems Squamous cell carcinoma of right ear (Acute) Laceration of lip without complication (Acute) You will use the following diet at home:: No restrictions Discharge Activity: Return to Normal Activity Call your doctor if your incision/area has: Sudden Increased Bleeding, Increased Pain/ Swelling, Increased Redness, Foul Smelling Discharge, Swelling at the incision site Call your doctor if you observe: Fever of 101 or Higher, Uncontrolled pain Allergies/Adverse Reactions: Allergies No Known Allergies Allergy (Verified 02/11/18 09:56) Medications to take at Discharge RX: Acetaminophen [Tylenol] 500 - 1,000 mg PO Q6H PRN PRN 02/11/18 RX: Atorvastatin Calcium [Lipitor] 40 mg PO QHS 02/11/18 RX: Baclofen 10 - 20 mg PO QHS 02/11/18 RX: Gabapentin [Neurontin] 300 mg PO DAILY 02/11/18 RX: Gabapentin [Neurontin] 600 mg PO QHS 02/11/18 RX: Metformin HCl 500 mg PO BID 02/11/18 RX: Nabumetone [Relafen] 750 mg PO BID 02/11/18 RX: Omeprazole 40 mg PO BID 02/11/18 Primary Care Physician: Minerva Moore [Primary Care Provider] - Test Results: Test results from this visit will be discussed in further detail at your follow- up appointment, if applicable. Please Follow Up With: Benito Carrillo MD When: 1 week
[2018-02-21 12:50] LABS: Bedside Glucose 148 mg/dL (70-110)
== END 2018-02-21 13:53 | disposition home or self-care (01) ==
LOC: SDC 09:27 → AC 09:30
PROVIDERS: Family Provider Internal Medicine; PCP Internal Medicine; Referring Provider Otolaryngology; Visit Provider Otolaryngology
PROC: (CPT 12011; principal; 2018-02-21 11:15)
DX: C44.222 Squamous cell carcinoma of skin of right ear and external auricular canal (principal); L76.11 Accidental puncture and laceration of skin and subcutaneous tissue during a dermatologic procedure; Y92.234 Operating room of hospital as the place of occurrence of the external cause; Y83.8 Other surgical procedures as the cause of abnormal reaction of the patient, or of later complication, without mention of misadventure at the time of the procedure; E11.9 Type 2 diabetes mellitus without complications; E78.00 Pure hypercholesterolemia, unspecified; M19.90 Unspecified osteoarthritis, unspecified site; K21.9 Gastro-esophageal reflux disease without esophagitis; Z79.84 Long term (current) use of oral hypoglycemic drugs; Z79.899 Other long term (current) drug therapy; Z78.0 Asymptomatic menopausal state
CPT/HCPCS: 12011; 14060; 82962; 88305; J7120; J2405

== ENCOUNTER → 2019-04-16 | Outpatient (CLI) | payer MEDICARE, SELFPAY ==
[2018-02-21 09:53] VITALS: BMI 24.9
--- NOTE | 2019-04-16 | IMM_PTH ---
PATIENT: YESENIA RICHMOND LOC: [facility] U#:[id number] AGE/SX: 78/F ROOM: RE04/16/[address]: Dr. Benito Carrillo MD : 1940 BED: DIS: 04/16/2019 SPEC #: [id number] RECD: 04/20/19 10:37 STATUS: YVAN REQ #: [id number] GOPI: 04/16/19 00:[address]: Benito Carrillo DEPT: IMMUNOHISTOCHEMISTRY RECD BY: Italia Shaver ENTERED: 04/20/19 10:39 SP TYPE: IMMUNO OTHR DR: Dr. Minerva Moore MD Tissues: Skin of external auditory canal Procedures: CK14 (add) CK5-6 (add) CK7 (add) VERDUGO-2 (add) P53 (add) Pankeratin (initial) P40 (add) PHYSICIAN & INSTITUTION [place] [address] SPECIMEN INFORMATION: Tissue Source: Excision lesion right ear canal Clinical Info: History of SCCA of skin/ear Specimen Number: [id number] CPT code: 21456, 03732 x6 METHODOLOGY: Deparaffinized sections of prefer/formalin-fixed tissue or PAP/DQ stained slides are incubated with monoclonal/polyclonal antibodies/oligonucleotide probes. Localization is made via biotin free immunoperoxidase method. Appropriate controls are performed and reacted as expected. Results on target cell population are indicated in the following table: RESULTS: ANTIBODY / CLONE RESULT AE1-3 (AE1/AE3/PCK26) positive, dim, focal CK7 (OV-TL12/30) positive, focal VERDUGO-2 (SP21) negative CK5-6 (D5 & 1684) positive CK14 (LL002) positive P40 (BC28) positive P53 (DO-7) positive, 8% dim These tests were developed and their performance characteristics determined by [facility]. They may not have been cleared or approved by the U.S. Food and Drug Administration. The FDA has determined that such clearance or approval is not necessary. The above immunohistochemical/dualISH markers are ordered and reviewed by the Pathologist. 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 AM:maritza 04/21/19 Case has been reviewed in consultation with Dr. Salazar who concurs with the above diagnosis. IDC:BRANDIE
--- NOTE | 2019-04-16 | LES_PTH ---
PATIENT: YESENIA RICHMOND LOC: [facility] U#:[id number] AGE/SX: 78/F ROOM: RE04/16/[address]: Dr. Benito Carrillo MD : 1940 BED: DIS: 04/16/2019 SPEC #: [id number] RECD: 04/16/19 15:31 STATUS: YVAN LENNIE #: [id number] GOPI: 04/16/19 00:[address]: Benito Carrillo DEPT: SURGICAL PATHOLOGY RECD BY: Shahzad Vega ENTERED: 04/17/19 07:53 SP TYPE: Lesion OTHR DR: Dr. Minerva Moore MD Tissues: Skin of external auditory canal Procedures: Surgery Specimen Level IV HEADER OPERATION: Excision lesion right ear canal PRE-OP DIAGNOSIS: History of SCCA of skin/ear TISSUE SUBMITTED: Excision lesion right ear canal MICROSCOPIC DIAGNOSIS Soft tissue of right ear canal, biopsy: Fibro fatty tissue with small foci of invasive squamous cell carcinoma with basaloid features. See comment. AM:maritza 04/20/19 COMMENT Reference is made to the patient's previous right external ear biopsy ([id number]) in which fragments of invasive squamous cell carcinoma was identified. Immunohistochemistry ([id number]) supports the above diagnosis. Case has been reviewed in consultation with Dr. Salazar who concurs with the above diagnosis. IDC:BRANDIE MICROSCOPIC DESCRIPTION Slides are reviewed. GROSS DESCRIPTION Received in fixative is one container labeled with the patient's name and designated lesion of right ear canal. The specimen consists of a piece of sage-white soft tissue measuring 1 x 0.5 x 0.2 cm. The entire specimen is submitted in one cassette. / BRANDIE:maritza 04/17/19 TC:0 CPT: 35777
== END | disposition home or self-care (01) ==
LOC: LABSPEC 15:54
PROVIDERS: PCP Internal Medicine; Referring Provider Otolaryngology; Visit Provider Otolaryngology
DX: L98.9 Disorder of the skin and subcutaneous tissue, unspecified (principal)
CPT/HCPCS: 88305; 88341; 88342

== ENCOUNTER → 2019-04-28 | Outpatient (CLI) | payer MEDICARE, SELFPAY ==
[2018-02-21 09:53] VITALS: BMI 24.9
--- NOTE | 2019-04-28 | LES_PTH ---
PATIENT: YESENIA RICHMOND LOC: [facility]#:[id number] AGE/SX: 78/F ROOM: RE04/28/[address]: Dr. Benito Carrillo MD : 1940 BED: DIS: 04/28/2019 SPEC #: [id number] RECD: 04/28/19 13:39 STATUS: YVAN REAmilcar #: [id number] GOPI: 04/28/19 00:[address]: Benito Carrillo DEPT: SURGICAL PATHOLOGY RECD BY: Bipin Osorio ENTERED: 04/28/19 14:10 SP TYPE: Lesion OTHR DR: Dr. Minerva Moore MD Tissues: Skin of external ear, NOS Procedures: Surgery Specimen Level IV HEADER OPERATION: Right ear canal lesion biopsy PRE-OP DIAGNOSIS: History of SCCA, BCCA of skin ear TISSUE SUBMITTED: Right ear canal lesion MICROSCOPIC DIAGNOSIS Lesion of right ear canal, biopsy: Basal cell carcinoma, superficial nodular. Ulceration with associated acute and chronic inflammation and granulation. See comment. AM:maritza 04/29/19 COMMENT The carcinoma measures 3 mm in greatest dimension and appears to have been completely excised in the planes examined. Reference is made to the patient's nonhealing wound, right external ear, biopsy from 2018 ([id number]) in which invasive squamous cell carcinoma was identified. Case has been reviewed in consultation with Dr. Salazar who concurs with the above diagnosis. IDC:BRANDIE MICROSCOPIC DESCRIPTION Slides are reviewed. GROSS DESCRIPTION Received in fixative is one container labeled with the patient's name and designated right ear canal lesion. The specimen consists of a piece of skin with underlying tissue measuring 1.5 x 1 x 0.1 cm. The entire specimen is submitted in one cassette. / BRANDIE:maritza 04/28/19 TC:0 CPT: 84105
== END | disposition home or self-care (01) ==
LOC: LABSPEC 13:56
PROVIDERS: PCP Internal Medicine; Referring Provider Otolaryngology; Visit Provider Otolaryngology
DX: C44.212 Basal cell carcinoma of skin of right ear and external auricular canal (principal); Z85.828 Personal history of other malignant neoplasm of skin
CPT/HCPCS: 88305